=== PATIENT | female | born 2000 ===

== ENCOUNTER → 2023-02-27 | Outpatient (REF) | payer BC ==
[2023-02-28 15:41] LABS: CREATININE, URINE 35.8 MG/DL; CREATININE,RANDOM URINE 35.8 MG/DL
[2023-02-28 15:42] LABS: MALB URINE SIEMENS < 3.0 MG/L; MAU/CREAT RATIO 8.3 MCG/MG (0.0-30.0)
== END ==
LOC: M LAB REF 12:40
PROVIDERS: ATTEND Nurse Practitioner Family
DX: R03.0 Elevated blood-pressure reading, without diagnosis of hypertension (principal)

== ENCOUNTER → 2023-03-05 | Outpatient (REF) | payer BC ==
[2023-03-05 17:33] LABS: ALBUMIN 4.3 G/DL (3.2-5.2); ALKALINE PHOSPHATASE 69 U/L (46-116); ALT/SGPT 18 U/L (7.0-40); AST/SGOT 11 U/L (<34); BILIRUBIN,TOTAL 0.4 MG/DL (0.3-1.2); BLOOD UREA NITROGEN 10 MG/DL (9-23); CALCIUM LEVEL 9.8 MG/DL (8.5-10.1); CARBON DIOXIDE LEVEL 26 MMOL/L (20-31); CHLORIDE LEVEL 104 MMOL/L (98-107); CHOLESTEROL LEVEL 177 MG/DL (<200); CHOLESTEROL RISK RATIO 2.42 (<5); CREATININE FOR GFR 0.72 MG/DL (0.55-1.30); GLOMERULAR FILTRATION RATE > 60.0 (>60); GLUCOSE, FASTING 91 MG/DL (60-100); HDL CHOLESTEROL 72.9 MG/DL (>40); LDL CHOLESTEROL 85.5 MG/DL (<100); NON-HDL-C 104.1 MG/DL; POTASSIUM SERUM 4.2 MMOL/L (3.5-5.1); SODIUM LEVEL 136 MMOL/L (136-145); THYROID STIMULATING HORMONE 1.979 uIU/ML (0.55-4.78); TOTAL 25(OH) VITAMIN D 28.6 NG/ML (20.0-100.0); TOTAL PROTEIN 7.8 G/DL (5.7-8.2); TRIGLYCERIDES LEVEL 93 MG/DL (<150)
[2023-03-05 17:59] LABS: BASO % 0.3 % (0.0-1.0); EOS # 0.1 10^3/uL (0.0-0.5); EOS % 0.8 % (0.0-3.0); HEMATOCRIT 40.3 % (36.0-47.0); HEMOGLOBIN 13.8 g/dl (12.0-15.5); LYMPH # 1.9 10^3/uL (1.5-5.0); LYMPH % 28.6 % (24.0-44.0); MEAN CORPUSCULAR HEMOGLOBIN 30.2 pg (27.0-33.0); MEAN CORPUSCULAR HGB CONC 34.2 g/dl (32.0-36.5); MEAN CORPUSCULAR VOLUME 88.2 fl (80.0-96.0); MONO # 0.8 10^3/uL (0.0-0.8); MONO % 11.4 % (2.0-8.0); NEUTROPHILS # 3.9 10^3/uL (1.5-8.5); NEUTROPHILS % 58.7 % (36.0-66.0); RED BLOOD COUNT 4.57 10^6/uL (4.00-5.40); WHITE BLOOD COUNT 6.6 10^3/uL (4.0-10.0)
[2023-03-05 19:04] LABS: HEMOGLOBIN A1c 5.2 % (4.0-6.0)
== END ==
LOC: M LAB REF 16:21
PROVIDERS: ATTEND Nurse Practitioner Family
DX: E55.9 Vitamin D deficiency, unspecified (principal); E66.3 Overweight; R53.83 Other fatigue; Z11.9 Encounter for screening for infectious and parasitic diseases, unspecified

== ENCOUNTER → 2024-01-17 | Outpatient (REF) | payer BC ==
[2024-01-17 16:38] LABS: APPEARANCE, URINE HAZY (CLEAR); BACTERIA, URINE AUTO 1+ (NEGATIVE); BILIRUBIN, URINE AUTO NEGATIVE (NEGATIVE); BLOOD, URINE BLOOD 2+ (NEGATIVE); COLOR, URINE YELLOW (YELLOW); GLUCOSE, URINE (UA) AUTO NEGATIVE (NEGATIVE); KETONE, URINE AUTO NEGATIVE (NEGATIVE); LEUKOCYTE ESTERASE, URINE AUTO TRACE (NEGATIVE); NITRITE, URINE AUTO NEGATIVE (NEGATIVE); PROTEIN, URINE AUTO 1+ mg/dL (NEGATIVE); RBC, URINE AUTO 5 /HPF (0-3); SPECIFIC GRAVITY URINE AUTO 1.012 (1.002-1.035); SQUAMOUS EPITHELIAL CELL UR AU 2 /HPF (0-6); UROBILINOGEN, URINE AUTO 0.2 mg/dL (0.0-2.0); WBC, URINE AUTO 21 /HPF (0-3)
== END ==
LOC: M LAB REF 16:18
PROVIDERS: ATTEND Physician Assistant
DX: N39.0 Urinary tract infection, site not specified (principal)

== ENCOUNTER → 2024-02-14 | Outpatient (REF) | payer BC ==
[2024-02-15 14:22] LABS: Trichomonas vaginalis (AMP) NOT DETECTED (NEGATIVE)
[2024-02-15 14:45] LABS: GC DNA AMPLIFICATION NEGATIVE (NEGATIVE)
== END ==
LOC: M LAB REF 12:21
PROVIDERS: ATTEND Nurse Practitioner Family
DX: Z30.011 Encounter for initial prescription of contraceptive pills (principal)

== ENCOUNTER → 2024-02-25 | Outpatient (REF) | payer BC ==
[2024-02-25 16:56] LABS: BASO % 0.5 % (0.0-1.0); EOS % 0.7 % (0.0-3.0); HEMATOCRIT 38.8 % (36.0-47.0); HEMOGLOBIN 13.5 g/dl (12.0-15.5); LYMPH # 1.2 10^3/uL (1.5-5.0); LYMPH % 26.7 % (24.0-44.0); MEAN CORPUSCULAR HEMOGLOBIN 30.8 pg (27.0-33.0); MEAN CORPUSCULAR HGB CONC 34.8 g/dl (32.0-36.5); MEAN CORPUSCULAR VOLUME 88.6 fl (80.0-96.0); MONO # 0.5 10^3/uL (0.0-0.8); MONO % 11.5 % (2.0-8.0); NEUTROPHILS # 2.6 10^3/uL (1.5-8.5); NEUTROPHILS % 60.4 % (36.0-66.0); PLATELET COUNT, AUTOMATED 208 10^3/uL (150-450); RED BLOOD COUNT 4.38 10^6/uL (4.00-5.40); WHITE BLOOD COUNT 4.4 10^3/uL (4.0-10.0)
[2024-02-25 17:27] LABS: BLOOD UREA NITROGEN 11 MG/DL (9-23); CALCIUM LEVEL 9.7 MG/DL (8.5-10.1); CARBON DIOXIDE LEVEL 27 MMOL/L (20-31); CHLORIDE LEVEL 106 MMOL/L (98-107); CREATININE FOR GFR 0.81 MG/DL (0.55-1.30); GLOMERULAR FILTRATION RATE > 60.0 (>60); GLUCOSE, FASTING 108 MG/DL (60-100); POTASSIUM SERUM 4.5 MMOL/L (3.5-5.1); SODIUM LEVEL 141 MMOL/L (136-145)
[2024-02-25 17:28] LABS: THYROID STIMULATING HORMONE 1.177 uIU/ML (0.55-4.78)
== END ==
LOC: M LAB REF 16:29
PROVIDERS: ATTEND Nurse Practitioner Family
DX: Z30.011 Encounter for initial prescription of contraceptive pills (principal); R53.83 Other fatigue; E66.3 Overweight

== ENCOUNTER → 2024-03-11 | Outpatient (REF) | payer BC | LOC: M LAB REF 13:22 | PROVIDERS: ATTEND Nurse Practitioner Family | DX: Z12.4 Encounter for screening for malignant neoplasm of cervix (principal) ==